=== PATIENT | female | born 1945 | race Caucasian/White ===

== ENCOUNTER → 2016-09-04 | Day surgery (SDC) | payer MEDICARE, OTHER ==
[~2016-09-04] MED LIST: Lactated Ringers 1,000 ML IV SCH; Propofol 200 MG/20 ML SDV IV ONE
[2016-09-04 11:28] VITALS: BP 90/54
--- NOTE | 2016-09-07 07:02 | OR ---
DATE OF OPERATION: 09/04/2016 PREOPERATIVE DIAGNOSIS: FOLLOW UP POLYPS. POSTOPERATIVE DIAGNOSIS: FOLLOW UP POLYPS. SURGEON: Christoph Swanson MD PROCEDURE: FULL-LENGTH COLONOSCOPY. ANESTHESIA: EVENT DESIGNER due to advanced stage. COMPLICATIONS: None. SPECIMEN: None. FINDINGS: 1. Full-length colonoscopy. 2. Vale diverticulosis. 3. Status post partial sigmoid colectomy. RECOMMENDATIONS: Follow up colonoscopy on an as-needed basis. INDICATIONS: The patient was in for a physical. It had been almost 5 years since her last colonoscopy, at which time she had polyps removed. She was sent for a followup in that regard. DESCRIPTION OF PROCEDURE: The patient was prepped and draped, placed in left lateral decubitus position. A lubricated Olympus colonoscope was inserted and easily advanced to the cecum. Direct visualization of the ileocecal valve and appendiceal orifice was accomplished. The bowel prep was fine. Upon withdrawal of the scope, the patient does have vale diverticular disease all the way over toward the cecum, most severe in the left colon. There were no signs of any polyps, masses, ulcerations, or bleeding sites. No vascular abnormality, or signs of colitis. Anastomosis in the left lower quadrant was seen and is healthy. Rectal vault was unremarkable. Retroflexion showed no perianal lesions. It was suctioned. Scope removed without complication. JAZZY/ROLDAN /[id number]
== END ==
LOC: CC.SDS 10:12
PROVIDERS: ATTEND Family Medicine
DX: Z12.11 Encounter for screening for malignant neoplasm of colon (principal); K57.30 Diverticulosis of large intestine without perforation or abscess without bleeding; E53.8 Deficiency of other specified B group vitamins; I10 Essential (primary) hypertension; Z90.49 Acquired absence of other specified parts of digestive tract; Z88.8 Allergy status to other drugs, medicaments and biological substances; Z79.82 Long term (current) use of aspirin; Z79.899 Other long term (current) drug therapy; Z98.890 Other specified postprocedural states; Z87.891 Personal history of nicotine dependence; Z72.0 Tobacco use
CPT/HCPCS: G0105; J2704; J7120; 00810

== ENCOUNTER → 2021-11-06 | Day surgery (SDC) | payer MEDICARE, OTHER ==
[~2021-11-06] MED LIST changes: +Lidocaine 2% 5 ML SDV ONE; -Propofol 200 MG/20 ML SDV IV ONE; +Propofol 200 MG/20 ML SDV ONE; +fentaNYL 100 MCG/2 ML SDV ONE
[2021-11-06 10:21] VITALS: BP 149/59; PULSE 58
== END ==
LOC: CC.SDS 08:10
PROVIDERS: ATTEND Surgery
DX: K29.60 Other gastritis without bleeding (principal); R13.10 Dysphagia, unspecified; K44.9 Diaphragmatic hernia without obstruction or gangrene; M81.0 Age-related osteoporosis without current pathological fracture; E53.8 Deficiency of other specified B group vitamins; I10 Essential (primary) hypertension; N32.81 Overactive bladder; Z96.659 Presence of unspecified artificial knee joint; Z88.5 Allergy status to narcotic agent; Z79.899 Other long term (current) drug therapy; Z79.82 Long term (current) use of aspirin; Z85.3 Personal history of malignant neoplasm of breast; Z90.49 Acquired absence of other specified parts of digestive tract; Z98.890 Other specified postprocedural states; Z87.891 Personal history of nicotine dependence; Z90.10 Acquired absence of unspecified breast and nipple
CPT/HCPCS: J2704; J3010; J7120

== ENCOUNTER 2023-05-01 09:30 | Emergency (ER) | payer MEDICARE ==
[2023-05-01 09:33] VITALS: BP 181/54; PULSE 68
[2023-05-01] MEDS: Dexamethasone 4 MG/ML SDV PO ONE (09:53)
[2023-05-01] MEDS: Ketorolac 30 MG/ML SDV IM ONE (09:53)
== END 2023-05-01 10:06 | disposition home or self-care (01) ==
LOC: CC.ED 09:30
DX: K14.0 Glossitis (principal); J06.9 Acute upper respiratory infection, unspecified; I10 Essential (primary) hypertension; Z90.710 Acquired absence of both cervix and uterus; Z79.82 Long term (current) use of aspirin; Z79.899 Other long term (current) drug therapy; Z88.6 Allergy status to analgesic agent; Z88.5 Allergy status to narcotic agent
CPT/HCPCS: 96372; 99282; J1885; J8540; 99284

== ENCOUNTER 2023-10-16 13:21 | Emergency (ER) | payer MEDICARE ==
[2023-10-16] MEDS: HYDROmorphone 1 MG/ML Syringe ONE (13:34)
[2023-10-16] MEDS: Ondansetron 4 MG/2 ML SDV ONE (13:35)
[2023-10-16] MEDS: Sodium Chloride 0.9% 1,000 ML ONE (13:35)
[2023-10-16] MEDS: Ondansetron 4 MG/2 ML SDV IVPUSH STA (13:35)
[2023-10-16] MEDS: HYDROmorphone 1 MG/ML Syringe IVPUSH ONE (13:36)
[2023-10-16] MEDS: Sodium Chloride 0.9% 1,000 ML IV ONE (13:38)
[2023-10-16 13:44] LABS: BASOPHILS ABSOLUTE AUTO 0.09 10^3/uL (0.00-0.50); BASOPHILS PERCENT AUTO 0.8 % (0-1); EOSINOPHILS ABSOLUTE AUTO 0.19 10^3/uL (0.00-1.50); EOSINOPHILS PERCENT AUTO 1.6 % (0-6); HEMATOCRIT 29.2 % (37.0-47.0); HEMOGLOBIN 8.5 g/dL (12.0-16.0); IMMATURE GRAN ABSOLUTE AUTO 0.02 10^3/uL (0.00-0.49); IMMATURE GRAN PERCENT AUTO 0.2 % (0.0-4.9); LYMPHOCYTES ABSOLUTE AUTO 2.55 10^3/uL (0.60-5.00); MEAN CORPUSCULAR HGB CONC 29.1 g/dL (32.0-36.0); MEAN CORPUSCULAR VOLUME 75.5 fL (83.0-97.0); MONOCYTES ABSOLUTE AUTO 0.62 10^3/uL (0.00-1.50); MONOCYTES PERCENT AUTO 5.4 % (0-10); NEUTROPHILS ABSOLUTE AUTO 8.11 x10^3/uL (1.80-8.00); PLATELET COUNT,PLT 731 10^3/uL (150-400); RED BLOOD CELL COUNT 3.87 x10^6/uL (4.00-5.50); WHITE BLOOD CELL COUNT,WBC 11.6 10^3/uL (4.0-11.0)
[2023-10-16 13:59] LABS: ALBUMIN 3.2 g/dL (3.4-5.0); BILIRUBIN TOTAL 0.7 mg/dL (0.0-1.0); C-REACTIVE PROTEIN 1.04 mg/dL (<=0.50); CALCIUM 8.5 mg/dL (8.4-10.1); CREATININE 1.3 mg/dL (0.6-1.0); EST CRCL DRUG DOSING (CG) 33.39 mL/min; MAGNESIUM 1.6 mg/dL (1.8-2.4); PROTEIN TOTAL,TP 7.3 g/dL (6.4-8.2)
[2023-10-16 14:09] LABS: APPEARANCE,URINE SLIGHTLY CLOUDY (CLEAR); BILIRUBIN,URINE NEGATIVE (NEGATIVE); COLOR,URINE LIGHT YELLOW (YELLOW); GLUCOSE,URINE NEGATIVE (NEGATIVE); KETONES,URINE NEGATIVE (NEGATIVE); LEUKOCYTE ESTERASE,URINE SMALL (NEGATIVE); NITRITE,URINE NEGATIVE (NEGATIVE); OCCULT BLOOD,URINE NEGATIVE (NEGATIVE); PH,URINE 5.5 (4.5-8.0); PROTEIN,URINE NEGATIVE (NEGATIVE); UROBILINOGEN,URINE 0.2 EU/dL (0.2-1.0)
[2023-10-16 14:13] VITALS: PULSE 79
[2023-10-16 14:13] LABS: BACTERIA,URINE NOT SEEN /HPF (NOT SEEN); EPITHELIAL CELLS,URINE FEW /HPF (NOT SEEN); MUCUS,URINE OCCASIONAL /HPF (NOT SEEN); RBC,URINE NOT SEEN /HPF (0-5); WBC,URINE 0-5 /HPF (0-5)
[2023-10-16] MEDS: fentaNYL 50 MCG/ML SDV IVPUSH ONE (14:48)
[2023-10-16 15:00] VITALS: BP 203/71
== END 2023-10-16 15:07 | disposition critical access hospital (66) ==
LOC: CC.ED 13:21
DX: R10.32 Left lower quadrant pain (principal); I10 Essential (primary) hypertension; Z88.5 Allergy status to narcotic agent; Z88.8 Allergy status to other drugs, medicaments and biological substances; Z79.899 Other long term (current) drug therapy
CPT/HCPCS: 36415; 74019; 80053; 81001; 83605; 83690; 83735; 84484; 85025; 86140; 87040; 93005; 96361; 96374; 96375; 99285; J1170; J2405; J3010; J7030; 93010; 99284

== ENCOUNTER 2023-10-22 11:23 | Day surgery (SDC) | payer MEDICARE ==
[2023-10-22] MEDS: Lactated Ringers 1,000 ML IV SCH (11:41)
[2023-10-22] MEDS ORDERED: Propofol 200 MG/20 ML SDV ONE (12:05)
[2023-10-22] MEDS ORDERED: fentaNYL 50 MCG/ML SDV ONE (12:05)
[2023-10-22] MEDS ORDERED: Ketamine 200 MG/20 ML MDV ONE (12:05)
[2023-10-22] MEDS ORDERED: Metoprolol Tartrate 5 MG/5 ML SDV ONE (12:05)
[2023-10-22] MEDS ORDERED: amLODIPine 2.5 MG Tab ONE (13:35)
[2023-10-22] MEDS: amLODIPine 2.5 MG Tab PO ONE (13:38)
[2023-10-22 14:44] VITALS: PULSE 71
[2023-10-22 15:15] VITALS: BP 199/58
== END 2023-10-22 15:15 | disposition home or self-care (01) ==
LOC: CC.SDS 11:23
PROVIDERS: ATTEND Family Medicine
DX: K29.51 Unspecified chronic gastritis with bleeding (principal); K31.9 Disease of stomach and duodenum, unspecified; K31.7 Polyp of stomach and duodenum; K44.9 Diaphragmatic hernia without obstruction or gangrene; D50.9 Iron deficiency anemia, unspecified; K92.1 Melena; K21.9 Gastro-esophageal reflux disease without esophagitis; I10 Essential (primary) hypertension; E78.5 Hyperlipidemia, unspecified; M81.0 Age-related osteoporosis without current pathological fracture; E53.8 Deficiency of other specified B group vitamins; R60.0 Localized edema; L82.1 Other seborrheic keratosis; C50.919 Malignant neoplasm of unspecified site of unspecified female breast; R05.9 Cough, unspecified; Z88.5 Allergy status to narcotic agent; Z79.82 Long term (current) use of aspirin; Z79.899 Other long term (current) drug therapy; Z87.891 Personal history of nicotine dependence
CPT/HCPCS: 00731; 87081; 88305; 88342; 99100; A9270-GY; J2704; J3010; J3490; J7120

== ENCOUNTER 2023-12-31 07:53 | Day surgery (SDC) | payer MEDICARE ==
[2023-12-31] MEDS: Lactated Ringers 1,000 ML IV SCH (08:14)
[2023-12-31] MEDS ORDERED: Propofol 200 MG/20 ML SDV ONE (08:35)
[2023-12-31] MEDS ORDERED: Ketamine 200 MG/20 ML MDV ONE (08:35)
[2023-12-31] MEDS ORDERED: Lidocaine 2% 20 ML MDV ONE (08:35)
[2023-12-31] MEDS ORDERED: fentaNYL 50 MCG/ML SDV ONE (08:35)
[2023-12-31] MEDS ORDERED: Labetalol 20 MG/4 ML Syringe ONE (08:35)
[2023-12-31 09:41] VITALS: BP 121/48; PULSE 62
== END 2023-12-31 10:30 | disposition home or self-care (01) ==
LOC: CC.SDS 07:53
PROVIDERS: ATTEND Family Medicine
DX: D12.3 Benign neoplasm of transverse colon (principal); K57.30 Diverticulosis of large intestine without perforation or abscess without bleeding; I10 Essential (primary) hypertension; K21.9 Gastro-esophageal reflux disease without esophagitis; E78.5 Hyperlipidemia, unspecified; Z87.891 Personal history of nicotine dependence; Z79.899 Other long term (current) drug therapy
CPT/HCPCS: 00813; 43239; 45385; 87081; 99100; J1920; J2704; J3010; J7120; 88305; J3490